=== PATIENT | female | born 1980 | race Caucasian/White ===

== ENCOUNTER 2016-10-06 22:23 | Emergency (ER) | payer BC ==
[~2016-10-06] VITALS: Ht 167.6 cm; Wt 79.8 kg
[~2016-10-06 22:23] MED LIST: CLX/20 PO; MOME50SP5 NAE; MULT-513 PO; TRC48 PO
[2016-10-06 22:25] VITALS: TEMP 36.8; Ht 167.6 cm; Wt 79.8 kg
[2016-10-06] MEDS ORDERED: SODIUM CHLORIDE 0.9% 1000ML 1,000 ML IV STA (23:02)
[2016-10-06] MEDS ORDERED: ONDANSETRON INJ 2 MG/ML 2 ML VIAL IV STA (23:02)
[2016-10-06] MEDS ORDERED: KETOROLAC TROMETHAMINE 30 MG/ML VIAL IV STA (23:02)
[2016-10-06 23:15] LABS: BASO % 0.2 %; BASO ABS # 0.02 K/uL (0-0.2); COMPLETE YES; HEMATOCRIT 41.9 % (37-47); IG% 0.3 %; LYMPH % 35.2 %; LYMPH ABS # 3.36 K/uL (1.2-3.4); MEAN CELL VOLUME 95.2 fL (80-100); MEAN CORPUSCULAR HEMOGLOBIN 32.7 pg (25-34); MEAN CORPUSCULAR HGB CONC 34.4 g/dl (32-36); MEAN PLATELET VOLUME 9.6 fL (7.4-10.4); NEUT % 52.3 %; PLATELET COUNT 245 K/uL (130-400); WHITE BLOOD COUNT 9.55 K/uL (4.8-10.8)
[2016-10-06] MEDS ORDERED: MoRPHine SULFATE 4 MG/ML 1 ML CARP\\VIAL IV PRN (23:15)
--- NOTE | 2016-10-06 23:22 | EMERGENCY ROOM VISIT NOTE ---
History Report prepared by Olimpia: Dima Linares Under the Supervision of: Dr. Harry Amato D.O. First contact with patient: 22:39 Chief Complaint: ABDOMINAL PAIN Stated Complaint: STOMACH BLOATING AND PAIN History of Present Illness The patient is a 36 year old female who presents to the Emergency Room with complaints of intermittent abdominal pain beginning 6 days ago. The patient states that she is also experiencing bloating, right-sided back pressure, and diaphoresis. She denies chest pain, shortness of breath, hematuria, dark urine, chills, and fevers. The patient reports that she has not taken any pain medication for her symptoms because she does not like to. She states that she went to her PCP yesterday, and she was told she may have a yeast infection or a viral infection, but her tests will take a week to show results. The patient notes that 14 years ago she had severe kidney stones. She reports that she had an ablation after her second child and no longer has her menstrual cycle. The patient states that she smokes and occasionally drinks. She notes that she villa not have any other medical problems, and she still has her gallbladder and appendix. Source of History: patient Onset: 6 days ago Position: abdomen Symptom Intensity: 10 Timing: intermittent Associated Symptoms: + diaphoresis, + back pain (pressure), No fevers, No chills, No chest pain, No SOB, No urinary symptoms Note: Associated symptoms: bloating Review of Systems See HPI for pertinent positives & negatives. A total of 10 systems reviewed and were otherwise negative. Past Medical & Surgical Medical Problems: (1) Bronchitis (2) History of urinary tract problem (3) Kidney stone Surgical Problems: (1) History of tubal ligation Family History Cancer Diabetes mellitus Hypertension Social History Smoking Status: Current Every Day Smoker Alcohol Use: occasionally Marital Status: Housing Status: lives with family Occupation Status: employed Current/Historical Medications Scheduled Escitalopram Oxalate (Escitalopram Oxalate), 20 MG PO DAILY Fish Oil ([place]-3), 1 CAP PO DAILY Multiple Vitamin (Multi Vitamin), 1 TAB PO DAILY Allergies Coded Allergies: Molds and Smuts (Unverified Allergy, Unknown, SNEEZING, 10/07/16) Yeast (Verified Allergy, Unknown, PER ALLERY TEST, 10/07/16) Uncoded Allergies: PAIN MEDS (Allergy, Mild, ITCHING, 05/08/09) DARVOCET (Allergy, Unknown, ITCHING, 05/24/14) Physical Exam Vital Signs Date Time Temp Pulse Resp B/P (MAP) Pulse Ox O2 Delivery O2 Flow Rate FiO2 10/07/16 00:49 80 16 128/88 98 10/06/16 23:47 76 16 121/86 98 Room Air 10/06/16 22:25 36.8 95 18 131/95 98 Room Air Physical Exam GENERAL: Patient is awake, alert, and in no acute distress. Patient is resting comfortably and showing no signs of anxiety EYES: The conjunctivae are clear. The pupils are round and reactive. EARS, NOSE, MOUTH AND THROAT: The nose is without any evidence of any deformity. Mucous membranes are moist tongue is midline NECK: The neck is nontender and supple. RESPIRATORY: Normal respiratory effort is noted there is no evidence of wheezing rhonchi or rales CARDIOVASCULAR: Regular rate and rhythm noted there no murmurs rubs or gallops normal S1 normal S2 GASTROINTESTINAL: The abdomen is soft and mildly distended. Right side is tender to palpation, no rigidity or guarding. Bowel sounds are present in all quadrants. BACK: No midline tenderness or or step-off noted range of motion in flexion extension as well as rotation no signs of muscle spasm noted MUSCULOSKELETAL/EXTREMITIES: There is no evidence of gross deformity full range of motion is noted in the hips and shoulders SKIN: There is no obvious evidence of any rash. There are no petechiae, pallor or cyanosis noted. NEUROLOGIC: Patient is awake alert and oriented x3 strength is symmetric patellar reflexes are 2+ bilaterally Medical Decision & Procedures ER Provider Diagnostic Interpretation: CT results as stated below per my review and radiologist interpretation. CT ABDOMEN & PELVIS No hydronephrosis or hydroureter. No radiopaque ureteral stone appreciated. Remainder of noncontrast study shows no definite evidence for and acute inflammatory process. Radiologist: Polo Akins MD Study ready at 23:41 and initial results transmitted at 00:14. Laboratory Results 10/06/16 23:00 Red Blood Count 4.40, Mean Corpuscular Volume 95.2, Mean Corpuscular Hemoglobin 32.7, Mean Corpuscular Hemoglobin Concent 34.4, Mean Platelet Volume 9.6, Neutrophils (%) (Auto) 52.3, Lymphocytes (%) (Auto) 35.2, Monocytes (%) (Auto) 9.0, Eosinophils (%) (Auto) 3.0, Basophils (%) (Auto) 0.2, Neutrophils # (Auto) 4.99, Lymphocytes # (Auto) 3.36, Monocytes # (Auto) 0.86, Eosinophils # (Auto) 0.29, Basophils # (Auto) 0.02 10/06/16 23:00 Test 10/06/16 22:55 10/06/16 23:00 Urine Color YELLOW Urine Appearance CLEAR (CLEAR) Urine pH 7.5 (4.5-7.5) Urine Specific [place] 1.026 (1.000-1.030) Urine Protein NEG (NEG) Urine Glucose (UA) NEG (NEG) Urine Ketones NEG (NEG) Urine Occult Blood NEG (NEG) Urine Nitrite NEG (NEG) Urine Bilirubin NEG (NEG) Urine Urobilinogen NEG (NEG) Urine Leukocyte Esterase NEG (NEG) White Blood Count 9.55 K/uL (4.8-10.8) Red Blood Count 4.40 M/uL (4.2-5.4) Hemoglobin 14.4 g/dL (12.0-16.0) Hematocrit 41.9 % (37-47) Mean Corpuscular Volume 95.2 fL (80-100) Mean Corpuscular Hemoglobin 32.7 pg (25-34) Mean Corpuscular Hemoglobin Concent 34.4 g/dl (32-36) Platelet Count 245 K/uL (130-400) Mean Platelet Volume 9.6 fL (7.4-10.4) Neutrophils (%) (Auto) 52.3 % Lymphocytes (%) (Auto) 35.2 % Monocytes (%) (Auto) 9.0 % Eosinophils (%) (Auto) 3.0 % Basophils (%) (Auto) 0.2 % Neutrophils # (Auto) 4.99 K/uL (1.4-6.5) Lymphocytes # (Auto) 3.36 K/uL (1.2-3.4) Monocytes # (Auto) 0.86 K/uL (0.11-0.59) Eosinophils # (Auto) 0.29 K/uL (0-0.5) Basophils # (Auto) 0.02 K/uL (0-0.2) RDW Standard Deviation 43.7 fL (36.4-46.3) RDW Coefficient of Variation 12.6 % (11.5-14.5) Immature Granulocyte % (Auto) 0.3 % Immature Granulocyte # (Auto) 0.03 K/uL (0.00-0.02) Anion Gap 7.0 mmol/L (3-11) Est Creatinine Clear Calc Drug Dose 103.9 ml/min Estimated GFR () 110.8 Estimated GFR (Non- 95.6 BUN/Creatinine Ratio 26.1 (10-20) Calcium Level 9.3 mg/dl (8.5-10.1) Total Bilirubin 0.4 mg/dl (0.2-1) Direct Bilirubin < 0.1 mg/dl (0-0.2) Aspartate Amino Transf (AST/SGOT) 20 U/L (15-37) Alanine Aminotransferase (ALT/SGPT) 27 U/L (12-78) Alkaline Phosphatase 57 U/L (45-117) Total Protein 7.2 gm/dl (6.4-8.2) Albumin 3.9 gm/dl (3.4-5.0) Lipase 207 U/L (73-393) Human Chorionic Gonadotropin, Qual NEG (NEG) Laboratory results per my review. Medications Administered Medications (Trade) Dose Ordered Sig/Devora Route Start Time Stop Time Status Last Admin Dose Admin Ketorolac Tromethamine (Toradol Inj) 30 mg NOW STAT IV 10/06/16 23:02 10/06/16 23:04 DC 10/06/16 23:11 30 MG Sodium Chloride 1,000 ml @ 999 mls/hr Q1H1M STAT IV 10/06/16 23:02 10/07/16 00:02 DC 10/06/16 23:10 999 MLS/HR Ondansetron HCl (Zofran Inj) 4 mg NOW STAT IV 10/06/16 23:02 10/06/16 23:04 DC 10/06/16 23:11 4 MG Ondansetron HCl (ZOFRAN ODT 4MG Home Pack) 1 homepack UD ONCE PO 10/07/16 00:15 10/07/16 00:16 DC 10/07/16 00:45 1 HOMEPACK Oxycodone HCl (Roxicodone Immediate Rel 5MG Home Pack) 1 homepack UD ONCE PO 10/07/16 00:15 10/07/16 00:16 DC 10/07/16 00:44 [facility]: The patient was evaluated in room B12B. A complete history and physical examination were performed. 2301: Ordered Zofran Inj 4mg IV, NSS 1,000 ml @ 999 mls/hr IV, Toradol Inj 30mg IV 2314: Ordered Morphine Sulfate 4mg IV 0015: Ordered Oxycodone HCl 1 homepack PO, Ondansetron HCl 1 homepack PO 0019: Upon reevaluation, the patient is resting comfortably. I discussed the results and treatment plan with her. She verbalized agreement of the treatment plan. The patient was discharged home. Medical Decision Differential diagnosis: Etiologies such as appendicitis, diverticulitis, PUD, biliary pathology, UTI, pancreatitis, obstruction, mesenteric ischemia, aortic pathology, infections, inflammatory bowel disease, renal colic, as well as others were entertained. Medication Reconciliation: I attest that I have personally reviewed the patient' s current medications list. Blood pressure screening: Patient was found to have normal blood pressure on screening and does not require follow-up. The patient is a 36-year-old female who presented to the emergency department for evaluation of abdominal bloating and pain. The patient thought this was consistent with her previous episodes of kidney stone. She was treated with IV fluids IV pain medicine IV antiemetics. I discussed the patient's laboratory and radiographic studies with her. She was encouraged to rest and avoid any strenuous activity. She was also encouraged to call her family doctor in the morning to schedule a follow-up appointment but return to the emergency department immediately if symptoms change worsen or the need arises. Impression Primary Impression: Diffuse abdominal pain Scribe Attestation The scribe's documentation has been prepared under my direction and personally reviewed by me in its entirety. I confirm that the note above accurately reflects all work, treatment, procedures, and medical decision making performed by me. Departure Information Dispostion Home / Self-Care Referrals Ángela Neves PA-C Forms Call Back Authorization, HOME CARE DOCUMENTATION FORM, IMPORTANT VISIT INFORMATION Patient Instructions ED Abdominal Pain Unkn Cause, My [facility] Additional Instructions Continue to drink plenty clear liquids. Call your family in the morning to schedule a follow-up appointment. Return to the emergency apartment immediately if symptoms change worsen or if the need arises.
[2016-10-06 23:32] LABS: ALT/SGPT 27 U/L (12-78); BLOOD UREA NITROGEN 21 mg/dl (7-18); BUN/CREATININE RATIO 26.1 (10-20); CALCIUM 9.3 mg/dl (8.5-10.1); CARBON DIOXIDE 28 mmol/L (21-32); CHLORIDE 104 mmol/L (98-107); CREATININE 0.79 mg/dl (0.60-1.20); GLUCOSE 97 mg/dl (70-99); POTASSIUM 4.1 mmol/L (3.5-5.1); SODIUM 139 mmol/L (136-145)
[2016-10-06 23:35] LABS: ALKALINE PHOSPHATASE 57 U/L (45-117); AST/SGOT 20 U/L (15-37)
[2016-10-06 23:37] LABS: PREG INTERNAL NEGATIVE QC NEG CLEAR BACKGROUND; PREG INTERNAL POSITIVE QC POS CONTROL LINE
[2016-10-06 23:39] LABS: URINE APPEARANCE CLEAR (CLEAR); URINE BILIRUBIN NEG (NEG); URINE COLOR YELLOW; URINE NITRITE NEG (NEG); URINE PH 7.5 (4.5-7.5); URINE SPECIFIC GRAVITY 1.026 (1.000-1.030); UROBILINOGEN NEG (NEG)
[2016-10-06 23:46] LABS: MANUAL MICROSCOPIC REQUIRED? NO; REVIEW REQ? NO
[2016-10-07] MEDS ORDERED: MULT-1027 PO (00:04)
[2016-10-07] MEDS ORDERED: OXYCODONE IR HOME PACK PO ONE (00:15)
[2016-10-07] MEDS ORDERED: ONDANSETRON HOME PACK 4MG OD TAB PO ONE (00:15)
[2016-10-07 00:49] VITALS: BP 128/88; PULSE 80; O2SAT 98
--- NOTE | 2016-10-07 07:35 | DIAGNOSTIC IMAGING REPORT ---
ABDOMEN AND PELVIS CT WITHOUT CONTRAST CT DOSE: 377.71 mGy.cm HISTORY: right flank pain TECHNIQUE: Multiaxial CT images of the abdomen and pelvis were performed without contrast. COMPARISON STUDY: None. FINDINGS: The lung bases are clear. The unenhanced liver, spleen, gallbladder, pancreas, kidneys, and adrenal glands are within normal limits. No bowel wall thickening or obstruction. The pelvic organs are unremarkable. No suspicious lytic or blastic osseous lesions. There is a 1 cm nodule within the right breast on image 3. Normal appendix. IMPRESSION: No renal stones or hydronephrosis. A 1 cm nodule within the right breast. Follow-up nonemergent mammogram/ultrasound is recommended for further evaluation. Electronically signed by: Nii Gomez M.D. 10/07/2016 7:34 AM Dictated Date/Time: 10/07/2016 7:29 AM
[2016-10-29] MEDS ORDERED: OMEG10007 PO (00:04)
[2016-10-29] MEDS ORDERED: DIPH1TAB87 PO (19:00)
== END 2016-10-07 00:50 | disposition home or self-care (01) ==
LOC: C.EDB 22:24
DX: R10.84 Generalized abdominal pain (principal); Z87.442 Personal history of urinary calculi; F17.210 Nicotine dependence, cigarettes, uncomplicated; Z98.51 Tubal ligation status; Z80.9 Family history of malignant neoplasm, unspecified; Z83.3 Family history of diabetes mellitus; Z82.49 Family history of ischemic heart disease and other diseases of the circulatory system; Z79.899 Other long term (current) drug therapy

== ENCOUNTER 2016-10-29 18:40 | Emergency (ER) | payer BC ==
[~2016-10-29] VITALS: Ht 167.6 cm; Wt 78.7 kg
[~2016-10-29 18:40] MED LIST changes: -CLX/20 PO; -MOME50SP5 NAE; +MULT-1027 PO; -MULT-513 PO; +OMEG10007 PO; -TRC48 PO
[2016-10-29 18:45] VITALS: BP 139/104; PULSE 86; TEMP 36.5; O2SAT 100; Ht 167.6 cm; Wt 78.7 kg
[2016-10-29] MEDS ORDERED: MULTTAB5 PO (19:00)
[2016-10-29] MEDS ORDERED: DIPH1TAB PO (19:00)
[2016-10-29] MEDS ORDERED: CEPH500C PO (19:11)
--- NOTE | 2016-10-29 19:37 | EMERGENCY ROOM VISIT NOTE ---
History First contact with patient: 18:53 Chief Complaint: RASH Stated Complaint: RASH, ITCHING SORENESS ON FACE History of Present Illness The patient is a 36 year old female who presents to the Emergency Room with complaints of a rash on her right jawline. The patient reports that the rash developed over a week ago. It is not worsening in coverage, but reports worsening redness, especially with a lesion near the chin. The patient admits that she did squeeze the wound throughout the week, trying to drain pus from it. The patient denies any fevers or chills. Her neighbor thought that it may be shingles. The patient did have chickenpox as a child. She reports that there were no initial clear blisters. She denies any involvement inside the cheek, mouth or throat. Patient denies any significant history of acne. Her daughter and reports that she is constantly using different facial products. The patient cannot rule out the possibility of reaction to one of these products. She denies any pain, but does report mild itchiness. Review of Systems 10 system review was performed and was negative except for pertinent positives and negatives as indicated in history of present illness Past Medical/Surgical History Medical Problems: (1) Bronchitis (2) History of urinary tract problem (3) Kidney stone Surgical Problems: (1) History of tubal ligation Family History Cancer Diabetes mellitus Hypertension Social History Smoking Status: Current Every Day Smoker Alcohol Use: occasionally Marital Status: Housing Status: lives with family Occupation Status: employed Current/Historical Medications Scheduled Cephalexin Monohydrate (Keflex), 500 MG PO QID Escitalopram Oxalate (Escitalopram Oxalate), 20 MG PO DAILY Fish Oil ([place]-3), 1 CAP PO DAILY Multiple Vitamins W/ Minerals (Centrum), 1 TAB PO DAILY Scheduled PRN Diphenhydramine Hcl (Benadryl Allergy), 25 MG PO UD PRN for ALLERGIC REACTION Allergies Coded Allergies: Propoxyphene (Verified Allergy, Intermediate, Itching, 10/29/16) Darvocet Molds and Smuts (Unverified Allergy, Unknown, SNEEZING, 10/07/16) Yeast (Verified Allergy, Unknown, PER ALLERY TEST, 10/07/16) Uncoded Allergies: PAIN MEDS (Allergy, Mild, ITCHING, 05/08/09) Physical Exam Vital Signs Date Time Temp Pulse Resp B/P (MAP) Pulse Ox O2 Delivery O2 Flow Rate FiO2 10/29/16 18:45 36.5 86 16 139/104 100 Room Air Pain Rating (0-10): 0 Physical Exam CONSTITUTIONAL: Healthy and well nourished. Alert and oriented X 3 with positive affect. HEENT: Normocephalic, atraumatic. Pupils equal, round and reactive. No obvious facial edema noted. Dermatologic description is in the following Integumentary section. OROPHARYNX: No buccal or gingival lesions. NECK: Full active range of motion without discomfort. LYMPHATICS: No preauricular or cervical chain adenopathy. RESPIRATORY: Clear to auscultation bilaterally with no wheezing, crackles, rhonchi or stridor. CARDIOVASCULAR: Regular rate and rhythm with no murmurs, rubs or gallops. INTEGUMENTARY: Examination of the right mandible line shows an area of erythematous raised rash without pustules, vesicles or desquamation. There is mild induration, and the area is slightly warm to touch. The patient has no other involvement of the periarticular area or scalp. NEUROLOGIC: Cranial nerves II-XII grossly intact. No focal neurologic deficits noted. Facial sensations are intact. Medical Decision & Procedures ED Course Patient history and physical exam were performed. Nurse's notes were reviewed. Vital signs were reviewed, showing an elevated blood pressure 139/104. The patient was encouraged to follow-up with her PCP for blood pressure recheck. I explained to the patient that the rash on her face could be from several different possibilities, including cellulitis because she was squeezing the area , a topical dermatitis from her facial cleansing products or herpes zoster, although she has now had this rash for over a week and really should start to improve. Because of my concern for cellulitis, the patient was provided a prescription for Keflex. 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 She may also follow-up with her PCP as well. She was instructed to return for any significantly worsening redness, swelling, pain or fever. She was happy with plan of care, voice understanding of all discharge instructions, and denied any pain at the time of discharge. Medical Decision Impression Primary Impression: Facial rash Additional Impression: Elevated blood pressure reading Departure Information Dispostion Home / Self-Care Condition GOOD Prescriptions Cephalexin Monohydrate (Keflex) 500 Mg Cap 500 MG PO QID for 7 Days, #28 CAP Prov: [place], Satish Garth,PA 10/29/16 Forms HOME CARE DOCUMENTATION FORM, IMPORTANT VISIT INFORMATION Patient Instructions My [facility] [email or web address] Additional Instructions Complete all Keflex antibiotics as prescribed. Keep wounds clean and covered with an antibiotic ointment. Suggest follow-up with your edging machine feeder, especially if the redness is not improving within the next 48 hours. Return to the emergency department for any significantly worsening swelling, redness, pain or fever. Your blood pressure was 139/104 in the emergency department. Suggest follow-up with your family doctor for blood pressure recheck. Problem Qualifiers
[2016-10-29] MEDS ORDERED: LXP/20 PO (23:26)
== END 2016-10-29 19:18 | disposition home or self-care (01) ==
LOC: C.EDB 18:41 → C.EDD 19:18
DX: R21 Rash and other nonspecific skin eruption (principal); R03.0 Elevated blood-pressure reading, without diagnosis of hypertension; F17.210 Nicotine dependence, cigarettes, uncomplicated

== ENCOUNTER → 2016-11-03 | Outpatient (CLI) | payer BC ==
[~2016-11-03] MED LIST changes: +CEPH500C PO; +DIPH1TAB PO; +LXP/20 PO; -MULT-1027 PO; +MULTTAB5 PO
--- NOTE | 2016-11-03 15:43 | MAMMOGRAPHY REPORT ---
BILATERAL DIGITAL DIAGNOSTIC MAMMOGRAM TOMOSYNTHESIS WITH CAD AND TARGETED RIGHT ULTRASOUND: 7 CLINICAL HISTORY: 36-year-old woman incidentally noted to have a 1 cm nodule in the inferior, slightl y lateral right breast on a recent abdomen-pelvis CT dated 10/06/2016. Family history of breast canc er = cousin and aunt. TECHNIQUE: Bilateral breast tomosynthesis in addition to standard 2D mammography was performed. Curre nt study was also evaluated with a Computer Aided Detection (CAD) system. COMPARISON: Comparison is made to exam dated: 05/27/2013 mammogram - [facility]. BREAST COMPOSITION: There are scattered areas of fibroglandular density in both breasts. Mild invol utional changes comparing to the 2014 mammogram. FINDINGS: There is a lobulated 14 x 15 x 8mm mass in the lower outer middle one third of the right b reast. No other obvious mass, focal area of architectural distortion or suspicious calcifications ar e seen bilaterally. This 15 mm lobulated mass is felt to correlate with the recent CT finding, given the location. In retrospect, comparing to the prior mammogram performed 05/27/2013, this may have b een present on the MLO view, but it is best seen on the current tomosynthesis images and tomosynthesi s was not performed on the prior exam. Targeted ultrasound was performed in the lower outer quadrant of the right breast. In the 7:00 axis, 3 cm from the nipple, there is a multilobulated solid predominantly hypoechoic mass measuring 7.0 x 4.9 x 12.5 mm. This correlates with the mammographic mass and also the CT finding and is indetermina te. Although it most likely represents a benign fibroadenoma, definitive characterization with tissu e sampling is recommended. IMPRESSION: ACR BI-RADS CATEGORY 4: SUSPICIOUS, TARGETED ULTRASOUND ACR BI-RADS CATEGORY 4: SUSPICIO US 1. Ultrasound guided core biopsy is recommended for a solid 13 mm mass in the 7:00 right breast, whi ch is thought to correlate with the CT finding. In retrospect based on mammograms this may been pres ent in 2013, suggesting benignity, and this may represent a benign fibroadenoma. 2. No mammographic evidence of malignancy in the left breast. No other suspicious right breast find ings. These results and recommendations were discussed with the patient at the time of the exam. She tenta tively scheduled the right breast biopsy prior to leaving our department. Approximately 10% of breast cancers are not detected with mammography. A negative mammographic report should not delay biopsy if a clinically suggestive mass is present. Germania Castro M.D. ay/:11/03/2016 14:20:09 Inspector Repairer: Maral Alcantar, [facility] letter sent: Abnormal 4/5 BI-RADS Code: ACR BI-RADS Category 4: Suspicious Ultrasound BI-RADS: ACR BI-RADS Category 4: Suspici ous
== END | disposition home or self-care (01) ==
LOC: C.MAMM 12:53
PROVIDERS: ATTEND Physician Assistant
DX: N63 Unspecified lump in breast (principal)

== ENCOUNTER → 2016-11-15 | Outpatient (CLI) | payer BC ==
[~2016-11-15] MED LIST changes: -CEPH500C PO
--- NOTE | 2016-11-15 09:15 | Discharge Instructions ---
Discharge Instructions Procedure Procedure Date: Nov 15, 2016. Reason for visit: Right Mass. Discharge Discharge Date: Nov 15, 2016. Discharge Diagnosis: post right breast ultrasound guided core biopsy Instructions Activity Recommendations: Additional Limitations (see below) Return to School/Work: no limitations Recommended Home Diet: No Limitations Provider Instructions: ACTIVITY RECOMMENDATIONS: * No lifting, pushing, pulling or exercising the affected side for three days. RETURN TO SCHOOL/WORK: * You may return to work/school after the procedure, but do not perform any strenuous activities for 24 to 48 hours. MEDICATIONS: * Tylenol (two 325 mg) every four to six hours if needed for mild pain (if not allergic to Tylenol). DIET: * Resume previous diet. SPECIAL CARE INSTRUCTIONS: * Keep biopsy site dry for 24 hours. May shower after 24 hours, but do not soak (bathe) incision. * May remove Tegaderm (plastic patch) tomorrow AFTER showering. * Leave the steri-strips on for one week. Allow the steri-strips to fall off by themselves. If not off after one week, you may remove them. You may place a Bandaid crosswise over the strips, if desired. * Apply ice 10 minutes on and 10 minutes off as needed. * Wear a bra at bedtime to sleep more comfortably for 2-3 days. * Your referring physician should have the results after approximately 5 to 7 business days. * Call for unusual bleeding, fever, drainage, etc or if you have any questions call [phone] during normal business hours or after hours call Dr Castro, . FOLLOW UP VISIT: Follow-up with Referring Physician as scheduled. Allergies Coded Allergies: Propoxyphene (Verified Allergy, Intermediate, Itching, 10/29/16) Darvocet Molds and Smuts (Unverified Allergy, Unknown, SNEEZING, 10/07/16) Yeast (Verified Allergy, Unknown, PER ALLERY TEST, 10/07/16) Uncoded Allergies: PAIN MEDS (Allergy, Mild, ITCHING, 05/08/09) John Solorzano Recommendations: Call your doctor if: * Temperature above 101 degrees * Pain not relieved by pain medicine ordered * There is increased drainage or redness from any incision * You have any unanswered questions or concerns. Your Doctors Instructions noted above were prepared by provider Germania Castro. Patient Signature Section: Patient Instructions Signature Page Tiffany Barrera Patient (or Guardian) Signature/Date: I have read and understand the instructions given to me by my caregivers. Caregiver/RN/Doctor Signature/Date: The above-named patient and/or guardian has received patient instructions on this date. + Original Patient Signature Page (only) stays with chart. Please make copy for patient.
--- NOTE | 2016-11-15 13:10 | MAMMOGRAPHY REPORT ---
ULTRASOUND GUIDED BIOPSY RIGHT BREAST: 11/15/2016 CLINICAL HISTORY: Solid indeterminate 13 mm mass in the 7:00 right breast. Patient presents for ultr asound-guided core biopsy. COMPARISON: Comparison is made to exams dated: 11/03/2016 ultrasound, 11/03/2016 mammogram, and 014 mammogram - [facility]. PATIENT CONSENT: The procedure, risks and benefits were discussed with the patient and informed conse nt was obtained both verbally and in writing. Specific risks to this procedure include: bleeding, in fection, puncture of adjacent structure, nontarget biopsy, sampling error, pain, metal allergy and me dication reaction. PROCEDURE DESCRIPTION: A time out was performed and the right breast was agreed as the site of biopsy . The skin was prepped and draped in the usual sterile fashion. The solid parallel mass in the 7:00 r ight breast was chosen as the target for biopsy. Subcutaneous and intraparenchymal 1% buffered lidoca ine, with and without epinephrine, was administered as local anesthesia. A skin incision was made. T hrough the incision, 4 samples were taken with a 14 gauge Achieve biopsy device. A ribbon shaped meta llic marker was placed at the biopsy site. Hemostasis was achieved after manual compression. The tere ent tolerated the procedure well and there was no immediate complication. The samples were sent to [facility] pathology department in an appropriately labeled container. Postprocedure right CC and ML tomosynthesis images were obtained. A new ribbon-shaped metallic biops y marker is seen within the mammographic mass in question in the 7:00 axis of the right breast. No s ignificant post biopsy hematoma is identified. IMPRESSION: ULTRASOUND GUIDED BIOPSY Status post ultrasound guided core biopsy of an indeterminate solid mass in the 7:00 right breast, wi th ribbon shaped metallic biopsy marker placed at the site. The patient will receive notification of the biopsy results from her referring physician. Germania Castro M.D. ay/:11/15/2016 09:41:20 Lifestyle Block Farmer: Maral Alcantar, [facility]
--- NOTE | 2016-11-15 13:10 | MAMMOGRAPHY REPORT ---
UNILATERAL RIGHT DIGITAL DIAGNOSTIC MAMMOGRAM TOMOSYNTHESIS: 11/15/2016 CLINICAL HISTORY: Status post ultrasound guided core biopsy of an indeterminate solid mass in the 7:0 0 right breast. Please refer to the report from right breast ultrasound guided core biopsy performed at the same time for full detail. IMPRESSION: POST PROCEDURE IMAGING FOR MARKER PLACEMENT Please refer to the report from right breast ultrasound guided core biopsy performed at the same time for full detail. Approximately 10% of breast cancers are not detected with mammography. A negative mammographic report should not delay biopsy if a clinically suggestive mass is present. Germania Castro M.D. ay/:11/15/2016 09:17:23 Profiler Hand: Maral Alcantar, [facility] BI-RADS Code: Post Procedure Imaging For Marker Placement
== END | disposition home or self-care (01) ==
LOC: C.MAMM 08:43
PROVIDERS: ATTEND Physician Assistant
DX: D24.1 Benign neoplasm of right breast (principal)

== ENCOUNTER 2017-04-02 13:10 | Emergency (ER) | payer BC ==
[~2017-04-02] VITALS: Ht 167.6 cm; Wt 78.0 kg
[~2017-04-02 13:10] MED LIST changes: -DIPH1TAB PO; +DIPH1TAB87 PO
[2017-04-02 13:11] VITALS: BP 151/107; PULSE 92; TEMP 36.5; O2SAT 98; Ht 167.6 cm; Wt 78.0 kg
[2017-04-02] MEDS ORDERED: AMOX875T PO (13:29)
--- NOTE | 2017-04-02 13:37 | EMERGENCY ROOM VISIT NOTE ---
History First contact with patient: 13:14 Chief Complaint: SINUS CONGESTION/PRESSURE Stated Complaint: NAUSEA,FACE PAIN AND PRESSURE,EAR PRESSURE,PAIN Nursing Triage Summary: here with c/o sinus congestion History of Present Illness The patient is a 36 year old female who presents to the Emergency Room with complaints of sinus congestion, facial pain, nausea, year pressure and mild headache. The patient reports that she has had cold symptoms for the past week. Her daughter has had a cold for 2 weeks now, and also has similar symptoms. The patient reports that she has had a prior history of sinus infections, but cannot recall when her last infection was, or what antibiotic she was treated with. She rates her discomfort a 7 out of 10. Review of Systems 10 system review was performed and was negative except for pertinent positives and negatives as indicated in history of present illness Past Medical/Surgical History Medical Problems: (1) Bronchitis (2) History of urinary tract problem (3) Kidney stone Surgical Problems: (1) History of tubal ligation Family History Cancer Diabetes mellitus Hypertension Social History Smoking Status: Current Every Day Smoker Alcohol Use: occasionally Marital Status: Housing Status: lives with family Occupation Status: employed Current/Historical Medications Scheduled Amoxicillin & Pot Clavulanate (Augmentin 875-125 mg), 1 TAB PO BID Escitalopram Oxalate (Escitalopram Oxalate), 20 MG PO DAILY Fish Oil (Chapin-3), 1 CAP PO DAILY Multiple Vitamins W/ Minerals (Centrum), 1 TAB PO DAILY Physical Exam Vital Signs Date Time Temp Pulse Resp B/P (MAP) Pulse Ox O2 Delivery O2 Flow Rate FiO2 04/02/17 13:11 36.5 92 16 151/107 98 Room Air Physical Exam CONSTITUTIONAL: Healthy and well nourished. Patient does not appear acutely or toxic. HEENT: Normocephalic, atraumatic. Pupils equal, round and reactive. Facial edema or erythema noted. The patient has tenderness to palpation and percussion over the maxillary sinuses. Examination of the ears shows TM bulging without air-fluid levels or purulent effusion. Nares are clear. OROPHARYNX: Minimal posterior pharyngeal erythema without tonsillar hypertrophy , exudates or postnasal drip. NECK: Full active range of motion without discomfort. RESPIRATORY: Clear to auscultation bilaterally with no wheezing, crackles, rhonchi or stridor. CARDIOVASCULAR: Regular rate and rhythm with no murmurs, rubs or gallops. MUSCULOSKELETAL: Full range of motion of all joints without discomfort. INTEGUMENTARY: No rash or other significant dermatologic conditions noted. NEUROLOGIC: No focal neurologic deficits noted. Medical Decision & Procedures ED Course Patient history and physical exam were performed. Nurse's notes were reviewed. Vital signs were reviewed and were normal. History and clinical exam are consistent with an acute maxillary sinusitis. The patient was provided a prescription for Augmentin. She was encouraged to alternate ibuprofen and Tylenol as needed for pain/fever. She was encouraged to follow-up with her PCP if symptoms do not improve within the next week. The patient voiced understanding of all discharge instructions, was happy with plan of care, and rated her discomfort a 4 out of 10 at the conclusion of my exam. The patient's blood pressure was also elevated at 151/107. She was encouraged to follow-up with her PCP for blood pressure recheck. Medical Decision Medication Reconcilliation Current Medication List: was personally reviewed by tn Blood Pressure Screening Patient's blood pressure: Elevated blood pressure Blood pressure disposition: Referred to PCP Impression Primary Impression: Acute sinusitis Additional Impression: Elevated blood pressure reading Departure Information Dispostion Home / Self-Care Prescriptions Amoxicillin & Pot Clavulanate (Augmentin 875-125 mg) 1 Tab Tab 1 TAB PO BID for 10 Days, #20 TAB Prov: Satish Jose PA 04/02/17 Forms HOME CARE DOCUMENTATION FORM, IMPORTANT VISIT INFORMATION Patient Instructions Sinusitis Acute, Sinusitis Self Care, [facility] Additional Instructions Complete all Augmentin antibiotics as prescribed. Suggest taking a good decongestant (Sudafed). Ibuprofen 800 mg and/or Tylenol 1000 mg every 8 hours as needed for pain. You may also alternate these medications for more effective pain relief: Ibuprofen --4 HRS--> Tylenol --4 HRS--> ibuprofen --4 HRS--> Tylenol .... Follow-up with your family doctor if symptoms are not improving within the next week. Problem Qualifiers Primary Impression: Acute sinusitis Sinusitis location: maxillary Recurrence: non-recurrent Qualified Codes: J01.00 - Acute maxillary sinusitis, unspecified
== END 2017-04-02 13:40 | disposition home or self-care (01) ==
LOC: C.EDB 13:11 → C.EDD 13:40
DX: J01.90 Acute sinusitis, unspecified (principal); R03.0 Elevated blood-pressure reading, without diagnosis of hypertension; F17.200 Nicotine dependence, unspecified, uncomplicated; Z87.440 Personal history of urinary (tract) infections; Z87.442 Personal history of urinary calculi; Z98.51 Tubal ligation status; Z79.899 Other long term (current) drug therapy; Z80.9 Family history of malignant neoplasm, unspecified; Z83.3 Family history of diabetes mellitus; Z82.49 Family history of ischemic heart disease and other diseases of the circulatory system